=== PATIENT | male | born 1965 | race Caucasian/White ===

== ENCOUNTER 2016-12-22 18:26 | Inpatient (IN) | payer BC ==
[~2016-12-22] VITALS: Ht 167.6 cm; Wt 97.9 kg
[~2016-12-22 18:26] MED LIST: ANALGESIC325 MG PO; BENICAR20 MG PO; LIPITOR80 MG PO; LOPRESSOR25 MG PO; NITROSTAT,NITR0.4 M1 SL; ZETIA10 MG PO
[2016-12-22 18:45] LABS: HEMATOCRIT 44.9 % (38.0-50.0); MCH 30.5 PG (29.0-34.0); MCHC 36.3 G/DL (30.0-36.0); MCV 84.1 FL (86-99); PLATELET COUNT 237 K/uL (156-360); RBC DIS.WIDTH-CV 12.5 % (11.8-14.6); RBC DIS.WIDTH-SD 38.2 % (39-53); RED BLOOD COUNT 5.34 M/uL (4.00-5.50); WHITE BLOOD COUNT 10.4 K/uL (4.1-10.2)
[2016-12-22 18:53] LABS: CHLORIDE 102 mEq/L (99-109); SODIUM 136 mEq/L (136-147)
[2016-12-22 18:57] LABS: ANION GAP 12 MEQ/L (2-14); TOTAL BILIRUBIN 0.9 mg/dL (0.0-1.0)
[2016-12-22 18:59] LABS: ALKALINE PHOSPHATASE 110 IU/L (3-129); GFR ESTIMATE (CALCULATED) 56 mL/min/
[2016-12-22 19:00] LABS: UREA NITROGEN (BUN) 17 mg/dL (9-23)
[2016-12-22 19:02] LABS: LIPASE 274 U/L (1.0-51.0)
[2016-12-22 19:19] LABS: GLUCOSE 403 mg/dL (70-99)
[2016-12-22 20:41] LABS: ADD MIUA? YES; BILIRUBIN NEGATIVE; BLOOD NEGATIVE; COLOR YELLOW ((YELLOW)); GLUCOSE (STRIP) >=500; KETONES 20; LEUKOCYTES NEGATIVE; NITRITE NEGATIVE; PROTEIN (STRIP) 30; SPECIFIC GRAVITY 1.039 (1.000-1.030); UROBILINOGEN 0.2 MG/DL (0.2-1.0)
[2016-12-22 20:55] LABS: BACTERIA NONE SEEN /HPF; EPITHELIAL CELLS RARE /HPF; HYALINE CASTS 0-5 /LPF; MUCUS NONE SEEN /LPF; RED BLOOD CELLS 0-5 /HPF (0-5); UCUL ADDED? NO; UNCLASSIFIED CASTS 0-5 /LPF; WHITE BLOOD CELLS 0-5 /HPF (0-5)
[2016-12-22] MEDS ORDERED: METOPROLOL SUC100 MG PO (21:57)
[2016-12-22] MEDS ORDERED: TRAZODONE HCL150 MG PO (21:57)
[2016-12-22] MEDS ORDERED: LOSARTAN POTAS100 MG PO (21:57)
[2016-12-22] MEDS ORDERED: LITE COAT ASPI325 M1 PO (21:57)
[2016-12-22] MEDS ORDERED: ZANTAC150 MG PO (21:58)
[2016-12-22] MEDS ORDERED: AMLODIPINE BESY10 MG PO (21:58)
[2016-12-23] VITALS (7 sets, daily range): BP systolic 130–144; BP diastolic 62–80
[2016-12-23 00:47] LABS: TROP-I INTERPRETATION NEGATIVE; TROPONIN-I 0.02 ng/mL (0.0-0.30)
[2016-12-23 05:56] LABS: ALKALINE PHOSPHATASE 72 IU/L (3-129); ANION GAP 9 MEQ/L (2-14); CHLORIDE 106 MEQ/L (99-109); GLUCOSE 245 mg/dL (70-99); HDL CHOLESTEROL 19 MG/DL (Desirable>=40); LIPASE 175 U/L (1.0-51.0); NON-HDL CHOLESTEROL 144 mg/dL (Desirable<160); SAMPLE HEMOLYSIS CHECK 0; SAMPLE ICTERIC CHECK 0; SAMPLE LIPEMIA CHECK 0; SODIUM 139 MEQ/L (136-147); TOTAL BILIRUBIN 0.8 MG/DL (0.0-1.0); TOTAL CHOLESTEROL 163 mg/dL (Desirable<200); TRIGLYCERIDES 550 MG/DL (Normal: <150); UREA NITROGEN (BUN) 15 mg/dL (9-23)
[2016-12-23 05:58] LABS: GFR ESTIMATE (CALCULATED) > 59 mL/min/
[2016-12-23 07:05] LABS: Estimated Average Glucose 258 mg/dL (70-123); HEMOGLOBIN A1c (GLYCOHEMOGLOB) 10.6 % HGB (Below 5.7)
[2016-12-23 07:14] LABS: EOSINOPHIL COUNT 0.4 K/uL (0-0.3); HEMATOCRIT 39.3 % (38.0-50.0); IMMATURE GRANULOCYTE (%) 0.1 % (0.0-0.7); LYMPHOCYTE COUNT 3.1 K/uL (1.0-2.8); MCH 30.6 PG (29.0-34.0); MCHC 34.6 G/DL (30.0-36.0); MCV 88.5 FL (86-99); MEAN PLAT.VOLUME 11.9 uM^3 (9.0-12.4); MONOCYTE (%) 8.9 % (3-12); MONOCYTE COUNT 0.8 K/uL (0-0.8); NEUTROPHIL (%) 51.7 % (45-76); NEUTROPHIL COUNT 4.5 K/uL (1.8-6.4); PLATELET COUNT 189 K/uL (156-360); RBC DIS.WIDTH-CV 12.7 % (11.8-14.6); RBC DIS.WIDTH-SD 40.6 % (39-53); RED BLOOD COUNT 4.44 M/uL (4.00-5.50); WHITE BLOOD COUNT 8.8 K/uL (4.1-10.2)
[2016-12-23 17:16] LABS: POINT-OF-CARE METER ID UU14188577
[2016-12-23 22:38] LABS: POINT-OF-CARE METER ID UU14149397
[2016-12-24 06:13] LABS: EOSINOPHIL (%) 3.9 % (0-5); EOSINOPHIL COUNT 0.3 K/uL (0-0.3); HEMATOCRIT 38.4 % (38.0-50.0); IMMATURE GRANULOCYTE (%) 0.3 % (0.0-0.7); LYMPHOCYTE COUNT 2.5 K/uL (1.0-2.8); MCH 30.7 PG (29.0-34.0); MCHC 34.9 G/DL (30.0-36.0); MCV 88.1 FL (86-99); MEAN PLAT.VOLUME 11.7 uM^3 (9.0-12.4); MONOCYTE (%) 7.6 % (3-12); MONOCYTE COUNT 0.6 K/uL (0-0.8); NEUTROPHIL (%) 54.4 % (45-76); PLATELET COUNT 184 K/uL (156-360); RBC DIS.WIDTH-CV 12.3 % (11.8-14.6); RBC DIS.WIDTH-SD 40.1 % (39-53); RED BLOOD COUNT 4.36 M/uL (4.00-5.50); WHITE BLOOD COUNT 7.4 K/uL (4.1-10.2)
[2016-12-24 06:53] LABS: ALKALINE PHOSPHATASE 64 IU/L (3-129); ANION GAP 8 MEQ/L (2-14); CHLORIDE 106 MEQ/L (99-109); GFR ESTIMATE (CALCULATED) > 59 mL/min/; GLUCOSE 238 mg/dL (70-99); POTASSIUM 3.8 MEQ/L (3.7-5.4); SAMPLE HEMOLYSIS CHECK 0; SAMPLE ICTERIC CHECK 0; SAMPLE LIPEMIA CHECK 0; SODIUM 139 MEQ/L (136-147); UREA NITROGEN (BUN) 12 mg/dL (9-23)
[2016-12-24 06:55] LABS: TOTAL BILIRUBIN 0.6 MG/DL (0.0-1.0)
[2016-12-24 06:57] LABS: LIPASE 44 U/L (1.0-51.0)
[2016-12-24 07:43] LABS: POINT-OF-CARE METER ID UU14188577
[2016-12-24 07:59] VITALS: BP 124/69
[2016-12-24 12:14] LABS: POINT-OF-CARE METER ID UU14188577
[2016-12-24 16:01] VITALS: BP 134/79
[2016-12-24 16:43] LABS: POINT-OF-CARE METER ID UU14188577
[2016-12-24 21:51] LABS: POINT-OF-CARE METER ID UU14188577
[2016-12-24 22:32] VITALS: BP 125/84
[2016-12-25 06:35] LABS: POINT-OF-CARE METER ID UU14149397
[2016-12-25 07:58] VITALS: BP 147/64
[2016-12-25 11:48] VITALS: BP 128/60
[2016-12-25 15:44] VITALS: BP 122/76
[2016-12-26 00:25] VITALS: BP 118/58
[2016-12-26 06:50] LABS: POINT-OF-CARE METER ID UU14188577
[2016-12-26 08:09] VITALS: BP 130/78
[2016-12-26] MEDS ORDERED: MOTRIN400 MG PO (15:50)
[2016-12-26] MEDS ORDERED: ZOFRAN4 MG PO (15:51)
[2016-12-26] MEDS ORDERED: PROTONIX40 MG PO (15:51)
[2016-12-26] MEDS ORDERED: METFORMIN HCL500 MG PO (15:51)
[2016-12-26] MEDS ORDERED: FENOFIBRATE145 M1 PO (15:51)
[2016-12-26] MEDS ORDERED: LEVEMIR100 UNIT/2 SC (15:51)
== END 2016-12-26 17:25 | disposition home or self-care (01) | DRG 439 ==
LOC: EME 18:26 → EDOF 22:56 → 3EAST 22:56
PROVIDERS: Hospitalist; Internal Medicine; Specialist
DX: K85.00 Idiopathic acute pancreatitis without necrosis or infection (principal); N17.9 Acute kidney failure, unspecified; K85.30 Drug induced acute pancreatitis without necrosis or infection; K52.9 Noninfective gastroenteritis and colitis, unspecified; E11.9 Type 2 diabetes mellitus without complications; E86.0 Dehydration; I10 Essential (primary) hypertension; E78.1 Pure hyperglyceridemia; E78.5 Hyperlipidemia, unspecified; I25.10 Atherosclerotic heart disease of native coronary artery without angina pectoris; F17.210 Nicotine dependence, cigarettes, uncomplicated; E66.9 Obesity, unspecified; Z68.34 Body mass index [BMI] 34.0-34.9, adult; Z98.1 Arthrodesis status; Z95.5 Presence of coronary angioplasty implant and graft; Z79.82 Long term (current) use of aspirin; Z80.0 Family history of malignant neoplasm of digestive organs
CPT/HCPCS: 74176; 74181; 76705; 80053; 80061; 81003; 82948; 83036; 83690; 84484; 85025; 85027; 86140; 93005; 99281; 99285; C9113; J1170; J1815; J2060; J2270; J2405; J7030

== ENCOUNTER 2017-02-25 16:12 | Emergency (ER) | payer OTHER, BC ==
[~2017-02-25] VITALS: Ht 170.2 cm; Wt 98.0 kg
[~2017-02-25 16:12] MED LIST changes: +AMLODIPINE BESY10 MG PO; +FENOFIBRATE145 M1 PO; +LEVEMIR100 UNIT/2 SC; +LITE COAT ASPI325 M1 PO; +LOSARTAN POTAS100 MG PO; +METFORMIN HCL500 MG PO; +METOPROLOL SUC100 MG PO; +MOTRIN400 MG PO; +PROTONIX40 MG PO; +TRAZODONE HCL150 MG PO; +ZANTAC150 MG PO; +ZOFRAN4 MG PO
[2017-02-25] MEDS ORDERED: NORCO 7.5/321 TABLET PO (17:57)
[2017-02-25] MEDS ORDERED: MOTRIN800 MG PO (17:57)
[2017-02-25] MEDS ORDERED: VALIUM5 MG PO (17:57)
[2017-02-25 18:36] VITALS: BP 150/80
== END 2017-02-25 17:58 | disposition home or self-care (01) ==
LOC: EME → EDBD 16:12 → EME 16:12
DX: S39.012A Strain of muscle, fascia and tendon of lower back, initial encounter (principal); S16.1XXA Strain of muscle, fascia and tendon at neck level, initial encounter; V49.40XA Driver injured in collision with unspecified motor vehicles in traffic accident, initial encounter
CPT/HCPCS: 72100; 99281; 99283

== ENCOUNTER 2017-10-25 02:39 | Emergency (ER) | payer BC ==
[~2017-10-25] VITALS: Ht 167.6 cm; Wt 98.9 kg
[~2017-10-25 02:39] MED LIST changes: +MOTRIN800 MG PO; +NORCO 7.5/321 TABLET PO; +VALIUM5 MG PO
[2017-10-25 03:01] LABS: HEMATOCRIT 47.2 % (38.0-50.0); MCH 30.8 PG (29.0-34.0); MCHC 34.5 G/DL (30.0-36.0); MCV 89.1 FL (86-99); MEAN PLAT.VOLUME 10.1 uM^3 (9.0-12.4); PLATELET COUNT 256 K/uL (156-360); RBC DIS.WIDTH-CV 13.2 % (11.8-14.6); WHITE BLOOD COUNT 12.9 K/uL (4.1-10.2)
[2017-10-25 03:11] LABS: CHLORIDE 105 mEq/L (99-109)
[2017-10-25 03:12] LABS: POTASSIUM 3.9 mEq/L (3.7-5.4); SODIUM 141 mEq/L (136-147)
[2017-10-25 03:14] LABS: GLUCOSE 127 mg/dL (70-99)
[2017-10-25 03:15] LABS: ANION GAP 13 MEQ/L (2-14)
[2017-10-25 03:16] LABS: TOTAL BILIRUBIN 0.7 mg/dL (0.0-1.0)
[2017-10-25 03:18] LABS: ALKALINE PHOSPHATASE 73 IU/L (3-129); GFR ESTIMATE (CALCULATED) > 59 mL/min/ (58.99-99999)
[2017-10-25 03:19] LABS: UREA NITROGEN (BUN) 10 mg/dL (9-23)
[2017-10-25 03:32] LABS: LIPASE 334 U/L (1.0-51.0)
[2017-10-25 03:47] LABS: ADD MIUA? YES; BILIRUBIN NEGATIVE; BLOOD SMALL; COLOR YELLOW ((YELLOW)); GLUCOSE (STRIP) NEGATIVE; KETONES NEGATIVE; LEUKOCYTES NEGATIVE; NITRITE NEGATIVE; PROTEIN (STRIP) NEGATIVE; SPECIFIC GRAVITY 1.017 (1.000-1.030); UROBILINOGEN 0.2 MG/DL (0.2-1.0)
[2017-10-25 03:50] LABS: BACTERIA NONE SEEN /HPF; EPITHELIAL CELLS RARE /HPF; MUCUS TRACE /LPF; RED BLOOD CELLS 0-5 /HPF (0-5); UCUL ADDED? NO; WHITE BLOOD CELLS 0-5 /HPF (0-5)
[2017-10-25] MEDS ORDERED: ZOFRAN4 MG PO (05:43)
[2017-10-25] MEDS ORDERED: PERCOCET 5/31 TABLET PO (05:43)
[2017-10-25 06:04] VITALS: BP 144/90
== END 2017-10-25 06:25 | disposition home or self-care (01) ==
LOC: EME 02:39
DX: K85.90 Acute pancreatitis without necrosis or infection, unspecified (principal); J34.89 Other specified disorders of nose and nasal sinuses; K76.0 Fatty (change of) liver, not elsewhere classified; I10 Essential (primary) hypertension; I25.2 Old myocardial infarction; I70.0 Atherosclerosis of aorta; Z79.82 Long term (current) use of aspirin; F17.200 Nicotine dependence, unspecified, uncomplicated
CPT/HCPCS: 74177; 76705; 80053; 81003; 83605; 83690; 85027; 87040; 99281; 99285; J2270; J2405; J7030